=== PATIENT | female | born 1985 | race Caucasian/White ===

== ENCOUNTER 2021-06-11 15:32 | Emergency (ER) | payer SELFPAY ==
--- NOTE | 2021-06-11 16:24 | PC.NURSE ---
NO ANSWER FOR TRIAGE
--- NOTE | 2021-06-11 16:34 | PC.NURSE ---
NO ANSWER TO 2ND CALL FOR TRIAGE
--- NOTE | 2021-06-11 16:46 | PC.NURSE ---
3RD CALL NO ANSWER
== END 2021-06-12 03:31 | disposition left against medical advice (07) ==
DX: Z53.21 Procedure and treatment not carried out due to patient leaving prior to being seen by health care provider (principal)
CPT/HCPCS: 99199